=== PATIENT | female | born 1965 | race Two or more races ===

== ENCOUNTER 2023-11-26 10:48 | Emergency (ER) | payer OTHER ==
[~2023-11-26] VITALS: Ht 152.4 cm; Wt 55.3 kg
[2023-11-26] MEDS ORDERED: METHYLPREDNISOLONE SOD SUCC 125 MG VIAL IM STA (13:30)
[2023-11-26] MEDS ORDERED: DIPHENHYDRAMINE HCL 50 MG/ML VIAL 1ML IM STA (13:31)
== END 2023-11-26 13:53 | disposition home or self-care (01) ==
LOC: ER 10:48
DX: L50.9 Urticaria, unspecified (principal)

== ENCOUNTER 2025-07-04 10:22 | Inpatient (IN) | payer OTHER ==
[~2025-07-04] VITALS: Ht 154.9 cm; Wt 54.9 kg
--- NOTE | 2025-07-04 11:39 | NUR ---
PACIENTE FEMINA, C/C DOLOR ABDOMINAL, SE UBICA EN OBSERVACION CAMA 13 PARA SER EVALUADA POR
[2025-07-04] MEDS ORDERED: FAMOtidine 10 MG/ML (4ML VIAL) IV PUSH ONE (12:15)
[2025-07-04] MEDS ORDERED: ONDANSETRON HCL 2 MG/ML VIAL IV ONE (12:15)
[2025-07-04] MEDS ORDERED: 0.9 % SODIUM CHLORIDE 1,000 ML IV SCH (12:15)
[2025-07-04] MEDS ORDERED: MORPHINE SULFATE 4 MG/ML CARTRIDGE IV ONE (12:15)
--- NOTE | 2025-07-04 12:30 | NUR ---
PACIENTE ALERTA Y ORIENTADA X3 EN COMPANIA DE [employer]WAY. LA MISMA SE ORIENTA Y SE EDUCA SOBRE TRATAMIENTOS A SEGUIR, LA MISMA REFIERE ENTENDER. SE REALIZA DE KATARINA DE MUESTRAS Y SE COMIENZA ACCESO VENOSO EN ANTEBRAZO LISANDRO #22. CON MEDIDAS ASEPTICAS. SE ADMINISTRA MEDICAMENTOS ORDENADOS, LA MISMA TOLERA Y NO PRESENTA REACCION, SE MANTIENE EN OBSERVACION PARA RE-EVALUACION DE DOLOR SE LE HACE ENTREGA DE ENVASE PARA KATARINA DE URIANALIS
[2025-07-04 12:56] LABS: BASO % 0.3 % (0.1-1.2); EOS # 0.04 (0.04-0.54); EOS % 0.4 % (0.7-7.0); LYMPH # 1.38 (1.18-3.74); LYMPH % 14.1 % (19.3-53.1); MEAN PLATELET VOLUME 11.00 fl (9.4-12.4); MONO # 0.38 (0.24-0.82); MONO % 3.9 % (4.7-12.5); NEUT # 7.89 (1.56-6.13); NEUT % 80.9 % (34.0-71.1); RED CELL DISTRIBUTION WIDTH 13.7 % (11.6-14.4)
[2025-07-04 13:03] LABS: ERYTHROCYTE SEDIMENTATION RATE 13 mm/hr (0-30)
[2025-07-04 13:16] LABS: URINE APPEARANCE Turbid; URINE BILIRRUBIN Negative (NEGATIVE); URINE BLOOD Negative; URINE COLOR Yellow; URINE GLUCOSE Negative (NEGATIVE); URINE LEUKOCYTE Negative; URINE NITRATE Negative; URINE PROTEIN Trace (NEGATIVE); URINE UROBILINOGEN 0.2 E.U./dl
[2025-07-04 13:17] LABS: URINE BACTERIA 5.9 uL (0.0-1933); URINE EPITHELIAL CELLS 2.1 uL (0.0-38.8); URINE RBC 2.4 uL (0.0-20.8); URINE WBC 4.9 uL (0.0-23.2)
[2025-07-04 13:18] LABS: INR 0.98
[2025-07-04 13:19] LABS: URINE CAST 0.00 uL (0.0-1.40); URINE KETONE 40 (NEGATIVE)
[2025-07-04 14:10] LABS: ALT/SGPT 29.0 U/L (12-78); AST/SGOT 22.0 U/L (15-37); BILIRUBIN TOTAL 0.41 mg/dL (0.3-1.2); BUN CREA RATIO 30.0 (7.0-25.0); CREATININE SERUM 0.54 mg/dL (0.55-1.02); GFR 115.16; GLOBULINA 3.7 G/DL (2.4-3.5); GLUCOSE FASTING 116.0 mg/dL (65-100); OSMOLALITY SERUM 280.0 MOSM/KG (275-295)
[2025-07-04] MEDS ORDERED: KETOROLAC TROMETHAMINE 15 MG VIAL IV ONE (17:45)
[2025-07-04] MEDS ORDERED: MORPHINE SULFATE 2 MG/ML SYRINGE IV ONE (17:45)
[2025-07-04] MEDS ORDERED: MORPHINE SULFATE 2 MG/ML SYRINGE IV PRN ×2 (18:00→18:42)
[2025-07-04] MEDS ORDERED: PIPERACILLIN/TAZOBACTAM SODIUM 3.375 GM in DEXTROSE 5 % IN WATER 100 ML IV SCH (18:00)
[2025-07-04] MEDS ORDERED: FAMOTIDINE/PF 20 MG in 0.9 % SODIUM CHLORIDE 8 ML IV PUSH SCH (18:24)
[2025-07-04] MEDS ORDERED: ONDANSETRON HCL 4 MG in 0.9 % SODIUM CHLORIDE 50 ML IV PRN (18:30)
[2025-07-04] MEDS ORDERED: KETOROLAC TROMETHAMINE 30 MG VIAL IV PRN (18:45)
[2025-07-04] MEDS ORDERED: MORPHINE SULFATE 4 MG/ML CARTRIDGE IV PRN (19:00)
[2025-07-05] MEDS ORDERED: PROMETHAZINE HCL 25 MG/ML AMPUL IV PRN (08:00)
[2025-07-05] MEDS ORDERED: ORPHENADRINE CITRATE 30 MG/ML AMPUL IV PRN (08:00)
[2025-07-05 08:20] VITALS: BP 94/61; O2SAT 98
[2025-07-05 17:00] VITALS: BP 98/61; O2SAT 100
[2025-07-06 00:01] VITALS: BP 116/73; O2SAT 96
[2025-07-06 08:20] VITALS: BP 106/59; O2SAT 98
[2025-07-07 00:30] VITALS: BP 107/67; O2SAT 97
[2025-07-07 07:34] LABS: BASO % 0.7 % (0.1-1.2); EOS # 0.15 (0.04-0.54); EOS % 2.8 % (0.7-7.0); LYMPH # 1.67 (1.18-3.74); LYMPH % 31.0 % (19.3-53.1); MEAN PLATELET VOLUME 11.40 fl (9.4-12.4); MONO # 0.56 (0.24-0.82); MONO % 10.4 % (4.7-12.5); NEUT # 2.94 (1.56-6.13); NEUT % 54.7 % (34.0-71.1); RED CELL DISTRIBUTION WIDTH 14.0 % (11.6-14.4)
[2025-07-07 07:45] VITALS: BP 110/72; O2SAT 97
[2025-07-07 07:55] LABS: ALT/SGPT 102.0 U/L (12-78); AST/SGOT 55.0 U/L (15-37); BILIRUBIN TOTAL 0.76 mg/dL (0.3-1.2); BUN CREA RATIO 11.0 (7.0-25.0); CREATININE SERUM 0.53 mg/dL (0.55-1.02); GFR 117.67; GLOBULINA 3.2 G/DL (2.4-3.5); GLUCOSE FASTING 80.0 mg/dL (65-100); OSMOLALITY SERUM 285.0 MOSM/KG (275-295)
== END 2025-07-07 17:17 | disposition home or self-care (01) | DRG 446 ==
LOC: ER 10:23 → SEC-K 18:56 → SURG 23:21
PROVIDERS: General Practice; Student in an Organized Health Care Education/Training Program; ADMIT Internal Medicine; ATTEND Internal Medicine
PROC: BW40ZZZ Ultrasonography of Abdomen (ICD-10-PCS; principal; 2025-07-04)
PROC: BF37ZZZ Magnetic Resonance Imaging (MRI) of Pancreas (ICD-10-PCS; 2025-07-04)
DX: K80.20 Calculus of gallbladder without cholecystitis without obstruction (principal); K83.8 Other specified diseases of biliary tract